=== PATIENT | male | born 1960 | race Caucasian/White ===

== ENCOUNTER 2016-09-25 15:31 | Emergency (ER) | payer BC ==
[~2016-09-25] VITALS: Ht 182.9 cm; Wt 103.0 kg
[~2016-09-25 15:31] MED LIST: MULT-506 PO; VITAMIN D3 PO
[2016-09-25 15:42] VITALS: TEMP 37.5; Ht 182.9 cm; Wt 103.0 kg
--- NOTE | 2016-09-25 16:09 | DIAGNOSTIC IMAGING REPORT ---
LEFT ANKLE 3 VIEWS CLINICAL HISTORY: Left ankle pain. Fall. FINDINGS: 3 views of left ankle are obtained. No prior studies are available for comparison at the time of dictation. The skeletal structures are well mineralized. There is a questionable small avulsion fracture from the lateral malleolus, best seen on the lateral view. No additional findings are concerning for acute fracture. The ankle mortise is intact. There is a joint effusion. Soft tissue edema is present around the ankle. IMPRESSION: 1. Soft tissue swelling and joint effusion. 2. Question a small avulsion fracture from the lateral malleolus. 3. No additional findings are concerning for acute fracture. Electronically signed by: Yvon Badillo M.D. 09/25/2016 4:07 PM Dictated Date/Time: 09/25/2016 4:05 PM
--- NOTE | 2016-09-25 16:16 | EMERGENCY ROOM VISIT NOTE ---
History Report prepared by Sarah: Octavia Guidry Under the Supervision of: Dr. Raj Garcia M.D. 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 The patient fell stepping off of an uneven curb. He twisted his left ankle. He was briefly able to walk on it to get into some shade, but has not been able to ambulate since then. The patient notes swelling to the ankle. He rates his pain as a 5.5/10 in severity. Pressure exacerbates his pain. He has injured this same ankle years ago. The patient caught himself on his right palm when he fell. He denies any injury to the hand. He denies any wrist pain or hand pain. The patient denies LOC, head injury, knee pain, numbness, or weakness. Source of History: patient Onset: MATH INTERVENTIONIST Position: ankle (left) Symptom Intensity: 5.5/10 Timing: other (episode) Modifying Factors (Worsening): other (pressure) Note: Pt notes swelling to the ankle. Review of Systems See HPI for pertinent positives and negatives. A total of six systems were reviewed and were otherwise negative. Past Medical & Surgical Medical Problems: (1) Renal calculus, left Surgical Problems: (1) H/O colonoscopy Family History Patient reports no known family medical history. Social History Smoking Status: Former Smoker Alcohol Use: none Marital Status: Housing Status: lives with significant other Occupation Status: employed Current/Historical Medications Scheduled Multivitamin (Multivitamin), 1 TAB PO 3XWK [Vitamin D3], 1 CAP PO 3XWK Allergies Coded Allergies: No Known Allergies (Unverified , 09/25/16) Physical Exam Vital Signs Date Time Temp Pulse Resp B/P Pulse Ox O2 Delivery O2 Flow Rate FiO2 09/25/16 16:24 84 16 164/84 97 09/25/16 15:42 37.5 76 18 147/88 96 Room Air Physical Exam GENERAL: Alert, Well nourished, well developed, no acute distress MUSCULOSKELETAL: The left leg was examined. Moderate lateral edema on inspection of the ankle. No open wounds. Moderate tenderness to palpation of the lateral malleolus. No navicular, proximal fibula, or fifth metatarsal tenderness. Extremity neurovascularly intact. No ligamentous instability. Remainder of the lower extremity is unremarkable. Medical Decision & Procedures ER Provider Diagnostic Interpretation: Radiology results as stated below per my review and radiologist interpretation: LEFT ANKLE 3 VIEWS CLINICAL HISTORY: Left ankle pain. Fall. FINDINGS: 3 views of left ankle are obtained. No prior studies are available for comparison at the time of dictation. The skeletal structures are well mineralized. There is a questionable small avulsion fracture from the lateral malleolus, best seen on the lateral view. No additional findings are concerning for acute fracture. The ankle mortise is intact. There is a joint effusion. Soft tissue edema is present around the ankle. IMPRESSION: 1. Soft tissue swelling and joint effusion. 2. Question a small avulsion fracture from the lateral malleolus. 3. No additional findings are concerning for acute fracture. Electronically signed by: Yvon Badillo M.D. 09/25/2016 4:07 PM Dictated Date/Time: 09/25/2016 4:05 PM ED Course 1549: The patient was evaluated in room D7. A complete history and physical exam was performed. 1611: I reassessed the patient at this time. He is feeling better and resting comfortably. I discussed the results and treatment plan with the patient. I answered all pertaining questions that he had. He expressed understanding and verbalized agreement. The patient will be discharged home. Medical Decision Triage Nursing notes reviewed and agree them. Additional history obtained from his significant other The patient's history was concerning for traumatic injury. Differential diagnosis: Etiologies such as ankle sprain, fracture, dislocation, neurovascular compromise , compartment syndrome, soft tissue injury, as well as others were entertained. Physical examination: Consistent with an isolated left ankle injury. ER treatment provided: Patient declined analgesia Ice Gel splint Crutches On reassessment the patient felt better. Diagnostics interpreted by me: Imaging studies: Xrays as above. The patient essentially is ankle sprain with questionable avulsion chip. This is seen only on one view. He is doing very well. I discussed conservative management. Weightbearing as tolerated. NSAIDs, ice, elevation and rest. The patient will follow-up with his primary physician. If he is having any difficulty she will come back here or seek his primary care provider. If he has any issues on follow-up he may need referral to orthopedics.I gave my usual and customary discussion regarding this issue. By the evaluation outlined above emergent etiologies such as open fracture, dislocation, neurovascular compromise, compartment syndrome, infections, as well as others were deemed relatively unlikely. The patient Y4 informed about the findings as listed above. All questions were answered and they were pleased with the treatment. Return instructions were outlined and the patient was discharged in stable condition. Prescription management: Patient declined Referral: The patient was referred to their primary care physician for a recheck of your current condition. The chart was completed utilizing [email or web address] Speech voice recognition software. Grammatical errors, random word insertions, pronoun errors, and incomplete sentences are an occasional consequence of this system due to software limitations, ambient noise, and hardware issues. Any formal questions or concerns about the content, text, or information contained within the body of this dictation should be directly addressed to the physician for clarification. Impression Primary Impression: Left ankle sprain Additional Impression: Avulsion fracture of ankle Scribe Attestation The scribe's documentation has been prepared under my direction and personally reviewed by me in its entirety. I confirm that the note above accurately reflects all work, treatment, procedures, and medical decision making performed by me. Departure Information Dispostion Home / Self-Care Referrals Nishant Sarkar M.D. (PCP) Forms HOME CARE DOCUMENTATION FORM, IMPORTANT VISIT INFORMATION Patient Instructions [facility] Additional Instructions ORTHOPEDIC INSTRUCTIONS: Ibuprofen(Motrin, Advil) may be used for fever or pain. Use 600mg every six hours as needed. Take with food. Avoid using more than 2400mg in a 24 hour period. Do not use 2400mg per day for more than three consecutive days without physician direction. Prolonged inappropriate use can lead to stomach upset or ulcers. (AND/OR) Acetaminophen(Tylenol) may be used for fever or pain. Use 1000mg every six hours as needed. Avoid using more than 4000mg in a 24 hour period. Ice compresses for 20 minutes at a time four times daily for 2-3 days. Use the Gel splint and crutches as instructed. Rest and elevate your injury. If your splint feels excessively tight, you have worsening pain, develop numbness or tingling, or your digits appear blue, loosen the monie wrap. Then reapply the monie wrap gently without removing the splint. If your symptoms are not quickly relieved return to the ER for re-evaluation. Return to the ER immediately for any numbness, tingling, severe pain, extreme swelling in the extremity or as needed. Follow-up with your primary care physician this week for a recheck of your current condition. Problem Qualifiers Primary Impression: Left ankle sprain Encounter type: initial encounter Involved ligament of ankle: unspecified ligament Qualified Codes: S93.402A - Sprain of unspecified ligament of left ankle, initial encounter Additional Impression: Avulsion fracture of ankle Encounter type: initial encounter Fracture type: closed Laterality: left Qualified Codes: S82.892A - Other fracture of left lower leg, initial encounter for closed fracture
[2016-09-25 16:24] VITALS: BP 164/84; PULSE 84; O2SAT 97
== END 2016-09-25 16:25 | disposition home or self-care (01) ==
LOC: C.EDB 15:33 → C.EDD 16:25
DX: S82.62XA Displaced fracture of lateral malleolus of left fibula, initial encounter for closed fracture (principal); W10.1XXA Fall (on)(from) sidewalk curb, initial encounter; Z87.442 Personal history of urinary calculi; Z87.891 Personal history of nicotine dependence; Z79.899 Other long term (current) drug therapy

== ENCOUNTER → 2017-03-23 | Outpatient (CLI) | payer BC ==
--- NOTE | 2017-03-23 13:48 | DIAGNOSTIC IMAGING REPORT ---
R TOE(S) MIN 2 VIEWS CLINICAL HISTORY: S92.534A trauma COMPARISON: None. DISCUSSION: Oblique fracture proximal phalanx fourth toe. Mild Reaction. No evidence of dislocation. Moderate soft tissue edema. IMPRESSION: Oblique nondisplaced fracture proximal phalanx fourth toe. The above report was generated using voice recognition software. It may contain grammatical, syntax or spelling errors. Electronically signed by: Hammad Cervantes M.D. 03/23/2017 1:47 PM Dictated Date/Time: 03/23/2017 1:46 PM
== END | disposition home or self-care (01) ==
LOC: C.RAD1850 13:31
PROVIDERS: ATTEND Family Medicine
DX: S92.534A Nondisplaced fracture of distal phalanx of right lesser toe(s), initial encounter for closed fracture (principal); X58.XXXA Exposure to other specified factors, initial encounter; I10 Essential (primary) hypertension; Z83.3 Family history of diabetes mellitus